=== PATIENT | male | born 1995 | race Caucasian/White ===

== ENCOUNTER 2021-02-18 06:54 | Emergency (ER) | payer OTHER ==
[~2021-02-18] VITALS: Ht 165.1 cm; Wt 70.3 kg
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
--- NOTE | 2021-02-18 07:16 | NUR ---
taken to radiology
--- NOTE | 2021-02-18 07:53 | NUR ---
discharge to PD in stable condition.
[2021-02-18 07:54] VITALS: BP 121/60
== END 2021-02-18 07:55 ==
LOC: ER 06:57
DX: S16.1XXA Strain of muscle, fascia and tendon at neck level, initial encounter (principal); S40.012A Contusion of left shoulder, initial encounter; V49.49XA Driver injured in collision with other motor vehicles in traffic accident, initial encounter; Y93.89 Activity, other specified; Y92.413 State road as the place of occurrence of the external cause; Y99.8 Other external cause status
CPT/HCPCS: 71045-TC; 72040-TC